=== PATIENT | female | born 1985 ===

== ENCOUNTER 2017-07-03 18:34 | Emergency (ER) | payer SELFPAY ==
[2017-07-03 18:53] VITALS: BP 120/82; PULSE 73; TEMP 97.7; O2SAT 100
[2017-07-03] MEDS ORDERED: Dexamethasone 4 mg/1 ml IV STA (20:01)
[2017-07-03] MEDS ORDERED: Dexamethasone 4 mg/1 ml ONE (20:09)
[2017-07-03 20:14] LABS: BASO # 0.1 K/uL (0.0-0.2); BASO % 0.7 % (0.0-2.0); EOS # 0.2 K/uL (0.0-0.7); HEMATOCRIT 37.4 % (34.0-47.0); LYMPH # 3.7 K/uL (1.0-4.3); LYMPH % 43.3 % (20.0-40.0); MEAN CELL VOLUME 92.3 fL (81.0-99.0); MEAN CORPUSCULAR HEMOGLOBIN 31.6 pg (27.0-31.0); MEAN CORPUSCULAR HGB CONC 34.2 g/dL (33.0-37.0); MEAN PLATELET VOLUME 9.9 fL (7.2-11.7); MONO # 0.6 K/uL (0.0-0.8); MONO % 7.1 % (0.0-10.0); NRBC % 0.1 % (0.0-2.0); RED CELL DISTRIBUTION WIDTH 13.8 % (11.5-14.5); WHITE BLOOD COUNT 8.5 K/uL (4.8-10.8)
[2017-07-03 20:32] LABS: CHLORIDE 100 mmol/L (98-107); POTASSIUM 3.4 mmol/L (3.6-5.2); SODIUM 134 mmol/L (132-148)
[2017-07-03 20:34] LABS: BILIRUBIN,TOTAL 0.6 mg/dL (0.2-1.3); CARBON DIOXIDE 24 mmol/L (22-30); GFR AFRICAN-AMERICAN > 60
[2017-07-03 20:35] LABS: ALB/GLOB RATIO 1.5 (1.0-2.1); ALKALINE PHOSPHATASE 88 U/L (38-126); ALT/SGPT 41 U/L (9-52); AST/SGOT 31 U/L (14-36); BLOOD UREA NITROGEN 9 mg/dL (7-17); CALCIUM 8.9 mg/dl (8.6-10.4); GLUCOSE,RANDOM 116 mg/dL (65-105)
[2017-07-03] MEDS ORDERED: Iodixanol 320 MG/ML 100 ML BOTTLE IV ONE (20:35)
--- NOTE | 2017-07-03 21:40 | CT ---
EXAM: CT Neck With Intravenous Contrast CLINICAL HISTORY: 32 years old, female; Signs and symptoms; Dysphagia / difficulty swallowing TECHNIQUE: Axial computed tomography images of the neck with intravenous contrast. All CT scans at this facility use one or more dose reduction techniques, viz.: automated exposure control; ma/kV adjustment per patient size (including targeted exams where dose is matched to indication; i.e. head); or iterative reconstruction technique. Coronal and sagittal reformatted images were created and reviewed. CONTRAST: 100 mL of VISIPAQUE 320 administered intravenously. COMPARISON: No relevant prior studies available. FINDINGS: Nasopharynx: Unremarkable. Oropharynx: Mild enlargement of palatine tonsils. No peritonsillar abscess. Hypopharynx: Unremarkable. Larynx: Unremarkable. Normal epiglottis. Trachea: Unremarkable. Retropharyngeal space: Unremarkable. Submandibular/parotid glands: Unremarkable. Glands are normal in size. Thyroid: Unremarkable. No enlarged or calcified nodules. Bones/joints: No acute fracture. Soft tissues: Unremarkable. Vasculature: No acute findings. Lymph nodes: No pathologically enlarged lymph nodes. Sinuses: Small RIGHT maxillary retention cyst. Minimal mucosal thickening of LEFT maxillary sinus. Mastoid air cells: No mastoid effusion. Lung apices: Unremarkable as visualized. IMPRESSION: 1. Probable mild tonsillitis. No peritonsillar abscess. 2. Incidental/non-acute findings are described above.
--- NOTE | 2017-07-03 21:43 | C.PDOC ---
History Of Present Illness 30 year old female presents to the ED for evaluation of sore throat which began 2 months ago. Patient states her symptoms worsened last night; patient felt like she had difficulty breathing and had drooling though since that has improved. Patient states she's able to tolerate fluids today. She denies fever, chills, or prior evaluations for her throat pain. (-) SOB (-) chest pain Time Seen by Provider: 07/03/17 19:07 Chief Complaint (Nursing): ENT Problem History Per: Patient, [employer] History/Exam Limitations: Language Barrier Onset/Duration Of Symptoms: Other (2 months ) Current Symptoms Are (Timing): Still Present Past Medical History Reviewed: Historical Data, Nursing Documentation, Vital Signs Vital Signs: Last Vital Signs Temp 97.7 F 07/03/17 18:51 Pulse 73 07/03/17 18:51 Resp 20 07/03/17 22:08 BP 120/82 07/03/17 18:51 Pulse Ox 100 07/03/17 22:00 - Medical History PMH: No Chronic Diseases Surgical History: No Surg Hx Family History: States: Unknown Family Hx - Social History Hx Tobacco Use: No Hx Alcohol Use: No Hx Substance Use: No - Immunization History Hx Tetanus Toxoid Vaccination: No Hx Influenza Vaccination: No Hx Pneumococcal Vaccination: No Review Of Systems Except As Marked, All Systems Reviewed And Found Negative. Constitutional: Negative for: Fever, Chills ENT: Positive for: Throat Pain, Throat Swelling Cardiovascular: Negative for: Chest Pain Respiratory: Negative for: Shortness of Breath Physical Exam - Physical Exam Appears: Non-toxic, No Acute Distress Skin: Normal Color, Warm, Dry Head: Atraumatic, Normacephalic Eye(s): bilateral: Normal Inspection, EOMI Ear(s): Bilateral: Normal Nose: Normal, No Discharge Oral Mucosa: Moist Throat: No Erythema, No Exudate, No Drooling, Other (tonsillar swelling. uvula is at midline ) Neck: Normal ROM, Supple Lymphatic: Normal Exam Chest: Symmetrical, No Deformity, No Tenderness Cardiovascular: Rhythm Regular Respiratory: Normal Breath Sounds, No Rales, No Rhonchi, No Wheezing Gastrointestinal/Abdominal: Soft, No Tenderness Extremity: Normal ROM, Capillary Refill (less than 2 seconds) Neurological/Psych: Oriented x3, Normal Speech, Normal Cognition Gait: Steady ED Course And Treatment - Laboratory Results Result Diagrams: 07/03/17 20:07 07/03/17 20:07 O2 Sat by Pulse Oximetry: 100 (on RA) Pulse Ox Interpretation: Normal - CT Scan/US Neck CT Other Rad Studies (CT/US): Read By Radiologist, Radiology Report Reviewed CT/US Interpretation: [employer] for [employer]. [facility] Division of Radiology. [address] [place] [address]. Tel. no. . . . Patient Name: FERNY CAMP . Pt. Address: [address] [place] [address]. Rec #: [id number]. [place] [address]: Sandra Velez PA-C. Pt Order Location: [facility] : 1985 Female Age: 32 Order #: [id number]. Reason for exam: difficulty swallowing. . . . . . CT Scan. . . NECK SOFT TISSUE W/ CONTRAST Exam Date: 07/03/17. . This imaging exam was performed at [facility]. EXAM: CT Neck With Intravenous Contrast. . CLINICAL HISTORY: 32 years old, female; Signs and symptoms; Dysphagia / difficulty swallowing. . TECHNIQUE: Axial computed tomography images of the neck with intravenous contrast. All. CT scans at this facility use one or more dose reduction techniques, viz.: automated exposure control; ma /kV adjustment per patient size (including. targeted exams where dose is matched to indication; i.e. head); or iterative. reconstruction technique. Coronal and sagittal reformatted images were created and reviewed. . CONTRAST : 100 mL of VISIPAQUE 320 administered intravenously. . COMPARISON: No relevant prior studies available. . FINDINGS: Nasopharynx: Unremarkable. Oropharynx: Mild enlargement of palatine tonsils. No peritonsillar abscess. Hypopharynx: Unremarkable. Larynx: Unremarkable. Normal epiglottis. Trachea : Unremarkable. Retropharyngeal space: Unremarkable. Submandibular/parotid glands: Unremarkable. Glands are normal in size. Thyroid: Unremarkable. No enlarged or calcified nodules. Bones/joints: No acute fracture. Soft tissues : Unremarkable. Vasculature: No acute findings. Lymph nodes: No pathologically enlarged lymph nodes. Sinuses: Small RIGHT maxillary retention cyst. Minimal mucosal thickening. of LEFT maxillary sinus. Mastoid air cells : No mastoid effusion. Lung apices: Unremarkable as visualized. . IMPRESSION: 1. Probable mild tonsillitis. No peritonsillar abscess. 2. Incidental/non-acute findings are described above. . Dictated By: Rufino Padilla MD. Dictated Date/Time: 07/03/172139. Signed By: Rufino Padilla MD. Date Signed: 07/03/172139. Transcribed By: [facility]. Transcribe Date/Time: 2139. ACYP02/MT Progress Note: CT Neck soft tissue ordered and reviewed. Lidocaine PO, Decadron IV, and Toradol IVP administered. On re-evaluation, pt is sleeping, layign flat , in no discomfort. No difficutly breathing or swalling. Tolerating po. Case dsicussed with Dr Pnion, agreed upon plan and discharge. Pt instructedto follo wup with ENT in 1-2 days. Disposition - Disposition Referrals: [facility] [Outside] Giancarlo Cheng MD [Staff Provider] - Disposition: HOME/ ROUTINE Disposition Time: 21:42 Condition: STABLE Additional Instructions: Vaya a whitfield mdico o la clnica en 1-3 hua sin falta, para mas evaluacin. [place] los medicamentos vivian indicado. Volver a la delmar de emergencia en cualquier momento si los sntomas persisten o empeoran. Prescriptions: Amoxicillin 875 mg PO BID #20 tablet Ibuprofen [Motrin] 600 mg PO Q6 PRN #20 tab PRN Reason: Pain, Mild (1-3) Instructions: Tonsillitis (ED) Forms: [facility] (Nepalese) - Clinical Impression Clinical Impression: Tonsillitis - PA / INTERNAL MEDICINE SPECIALIST / Resident Statement MD/DO has reviewed & agrees with the documentation as recorded. - Scribe Statement The provider has reviewed the documentation as recorded by the Scribe (Sofie Melendez) All medical record entries made by the Scribe were at my direction and personally dictated by me. I have reviewed the chart and agree that the record accurately reflects my personal performance of the history, physical exam, medical decision making, and the department course for this patient. I have also personally directed, reviewed, and agree with the discharge instructions and disposition.
[2017-07-03 22:10] VITALS: RESP 20
--- NOTE | 2017-07-04 09:50 | RAD ---
PROCEDURE: Radiographs of the neck (soft tissue). HISTORY: pain COMPARISON: None. TECHNIQUE: Frontal and Lateral Radiographs of the neck, optimized for soft tissue visualization. FINDINGS: SOFT TISSUES: Retropharyngeal- prevertebral. Airway is midline and patent though appears to be located just to the right of midline. . No evidence of swelling of the epiglottis.. No radiopaque foreign body seen. CERVICAL SPINE: Grossly unremarkable. OTHER FINDINGS: None IMPRESSION: No evidence of retropharyngeal or prevertebral soft tissue swelling. The airway is patent does appears to be located just to the right of midline. Consider followup CT scan. Note this report was placed in PA review folder for followup. Consider followup CT scan of the neck if further evaluation is required. Note this report was placed in PA review folder for followup.
== END 2017-07-03 22:08 | disposition home or self-care (01) ==
LOC: C.ER 18:34
DX: J03.90 Acute tonsillitis, unspecified (principal)
CPT/HCPCS: 70360; 70491; 80053; 85025; 96374; 99284; J1100; J1885; Q9967